=== PATIENT | male | born 1965 | race Caucasian/White ===

== ENCOUNTER 2022-08-25 11:05 | Emergency (ER) | payer BC, OTHER ==
[~2022-08-25] VITALS: Ht 180.3 cm; Wt 109.0 kg
[2022-08-25 11:21] LABS: BASOPHILS # (AUTO) 0.1 X10'3 (0-0.2); BASOPHILS % (AUTO) 1.2 % (0-1); EOSINOPHILS # (AUTO) 0.3 X10'3 (0-0.9); EOSINOPHILS % (AUTO) 4.5 % (0-6); HEMATOCRIT 45.5 % (42.0-52.0); HEMOGLOBIN 15.5 g/dl (14.0-17.9); LYMPHOCYTES # (AUTO) 2.3 X10'3 (1.1-4.8); LYMPHOCYTES % (AUTO) 31.3 % (21-51); MEAN CORPUSCULAR HEMOGLOBIN 31.4 PG (27.0-31.0); MEAN CORPUSCULAR VOLUME 92.4 FL (78-98); MEAN PLATELET VOLUME 7.4 FL (7.4-10.4); MONOCYTES # (AUTO) 0.5 X10'3 (0-0.9); NEUTROPHILS # (AUTO) 4.2 X10'3 (1.8-7.7); PLATELET COUNT 271 X10'3 (140-440); RED BLOOD COUNT 4.93 X10'6 (4.70-6.10); RED CELL DISTRIBUTION WIDTH 12.6 % (11.5-14.5); WHITE BLOOD COUNT 7.4 X10'3 (4.5-11.0)
[2022-08-25] MEDS ORDERED: normal saline 1000ml 1,000 ML IV ONE (11:30)
[2022-08-25] MEDS ORDERED: diltiazem 5mg/ml 5ml inj. IV ONE ×2 (11:30→12:20)
[2022-08-25 11:36] LABS: ALANINE AMINOTRANSFERASE 41 U/L (12-78); ALBUMIN 3.8 G/DL (3.4-5.0); ALBUMIN/GLOBULIN RATIO 1.1 (1.1-1.5); ALKALINE PHOSPHATASE 84 IU/L (46-116); ANION GAP 13 (8-16); ASPARTATE AMINO TRANSFERASE 23 U/L (10-37); BILIRUBIN,TOTAL 0.7 MG/DL (0.1-1.0); BLOOD UREA NITROGEN 17 MG/DL (7-18); BUN/CREATININE RATIO 14.9 (5.4-32.0); CHLORIDE 105 MMOL/L (99-107); CREATININE 1.14 MG/DL (0.60-1.10); GLUCOSE 174 MG/DL (70-104); POTASSIUM 3.8 MMOL/L (3.5-5.1); SODIUM 144 MMOL/L (135-145); TOTAL CARBON DIOXIDE 26.4 MMOL/L (24-32); TOTAL PROTEIN 7.3 G/DL (6.4-8.2); eGFR 67 ML/MIN
[2022-08-25 11:44] LABS: MAGNESIUM 2.1 MG/DL (1.5-2.4)
[2022-08-25] MEDS ORDERED: metoprolol tartrate 1mg/ml inj IV ONE ×3 (12:45→14:00)
[2022-08-25] MEDS ORDERED: propofol 10mg/ml 20ml vial IV ONE (15:35)
[2022-08-25] MEDS ORDERED: metoprolol succinate 25mg (24-HOUR) SR. Tablet PO ONE (16:35)
[2022-08-25 17:40] VITALS: BP 167/97
== END 2022-08-25 17:56 | disposition home or self-care (01) ==
LOC: ER 11:05
DX: I48.20 Chronic atrial fibrillation, unspecified (principal); Z88.0 Allergy status to penicillin
CPT/HCPCS: 36415; 71045; 80053; 83735; 83880; 84484; 85025; 92960; 93005; 96361; 96374; 96375; 96376; 99285; J3490; J7030

== ENCOUNTER 2022-08-30 13:32 | Outpatient (CLI) | payer BC | END 2022-08-30 23:59 | disposition home or self-care (01) | LOC: CARD DIAG 13:32 | PROVIDERS: ATTEND Internal Medicine Cardiovascular Disease | DX: I34.81 Nonrheumatic mitral (valve) annulus calcification (principal); I10 Essential (primary) hypertension; I51.7 Cardiomegaly; I48.0 Paroxysmal atrial fibrillation | CPT/HCPCS: 93306 ==

== ENCOUNTER 2022-09-10 21:23 | Emergency (ER) | payer BC ==
[~2022-09-10] VITALS: Ht 180.3 cm; Wt 110.5 kg
[2022-09-10 21:43] LABS: BASOPHILS # (AUTO) 0.1 X10'3 (0-0.2); BASOPHILS % (AUTO) 1.1 % (0-1); EOSINOPHILS # (AUTO) 0.5 X10'3 (0-0.9); EOSINOPHILS % (AUTO) 5.6 % (0-6); HEMATOCRIT 48.2 % (42.0-52.0); HEMOGLOBIN 16.6 g/dl (14.0-17.9); MEAN CORPUSCULAR HEMOGLOBIN 31.9 PG (27.0-31.0); MEAN CORPUSCULAR HGB CONC 34.4 g/dL (33.0-36.5); MEAN CORPUSCULAR VOLUME 92.7 FL (78-98); MEAN PLATELET VOLUME 7.9 FL (7.4-10.4); MONOCYTES # (AUTO) 0.7 X10'3 (0-0.9); MONOCYTES % (AUTO) 8.8 % (2-12); NEUTROPHILS # (AUTO) 4.1 X10'3 (1.8-7.7); NEUTROPHILS % (AUTO) 48.5 % (42-75); PLATELET COUNT 270 X10'3 (140-440); RED CELL DISTRIBUTION WIDTH 12.5 % (11.5-14.5); WHITE BLOOD COUNT 8.4 X10'3 (4.5-11.0)
[2022-09-10 22:03] LABS: ALANINE AMINOTRANSFERASE 43 U/L (12-78); ALBUMIN 3.9 G/DL (3.4-5.0); ALBUMIN/GLOBULIN RATIO 1.1 (1.1-1.5); ALKALINE PHOSPHATASE 96 IU/L (46-116); ANION GAP 14 (8-16); ASPARTATE AMINO TRANSFERASE 22 U/L (10-37); BILIRUBIN,TOTAL 0.4 MG/DL (0.1-1.0); BLOOD UREA NITROGEN 11 MG/DL (7-18); BUN/CREATININE RATIO 12.4 (5.4-32.0); CALCIUM 8.4 MG/DL (8.5-10.1); CHLORIDE 105 MMOL/L (99-107); CREATININE 0.89 MG/DL (0.60-1.10); POTASSIUM 3.8 MMOL/L (3.5-5.1); SODIUM 142 MMOL/L (135-145); TOTAL CARBON DIOXIDE 22.8 MMOL/L (24-32); TOTAL PROTEIN 7.6 G/DL (6.4-8.2); eGFR 89 ML/MIN
[2022-09-10 22:05] LABS: GLUCOSE 179 MG/DL (70-104)
[2022-09-10] MEDS ORDERED: normal saline 1000ml 1,000 ML IV ONE (22:25)
[2022-09-10] MEDS: metoprolol tartrate 1mg/ml inj IV SCH ×3 (22:49→23:27)
--- NOTE | 2022-09-10 23:05 | NUR ---
Dr Richards aware pt has received 3 doses of metoprolol, HR 95 to 121,
[2022-09-10] MEDS ORDERED: diltiazem 5mg/ml 5ml inj. IV ONE (23:10)
--- NOTE | 2022-09-10 23:35 | NUR ---
pt received cardizem, HR 80 to 90s
[2022-09-11] MEDS ORDERED: propofol 10mg/ml 20ml vial IV ONE (00:40)
[2022-09-11] MEDS ORDERED: metoprolol succinate 25mg (24-HOUR) SR. Tablet PO ONE (01:55)
[2022-09-11 02:27] VITALS: BP 157/84
== END 2022-09-11 03:38 | disposition home or self-care (01) ==
LOC: ER 21:23
DX: I48.91 Unspecified atrial fibrillation (principal); Z88.0 Allergy status to penicillin
CPT/HCPCS: 36415; 71045; 80053; 83880; 84484; 85025; 92960; 93005; 96361; 96374; 96375; 99285; J3490; J7030; A4620

== ENCOUNTER 2022-09-25 06:45 | Emergency (ER) | payer BC ==
[~2022-09-25] VITALS: Ht 180.3 cm; Wt 111.4 kg
[2022-09-25 06:46] VITALS: BP 160/97
--- NOTE | 2022-09-25 07:47 | NUR ---
Patient seen and assessed by provider.
--- NOTE | 2022-09-25 08:35 | NUR ---
called to notify patient regarding negative strep result.
== END 2022-09-25 07:47 | disposition home or self-care (01) ==
LOC: ER 06:46
DX: J02.9 Acute pharyngitis, unspecified (principal); I51.9 Heart disease, unspecified; Z88.0 Allergy status to penicillin
CPT/HCPCS: 87081; 87880; 99283

== ENCOUNTER 2022-10-17 13:40 | Emergency (ER) | payer BC ==
[~2022-10-17] VITALS: Ht 182.2 cm; Wt 112.3 kg
[2022-10-17 14:03] LABS: BASOPHILS # (AUTO) 0.1 X10'3 (0-0.2); EOSINOPHILS # (AUTO) 0.3 X10'3 (0-0.9); EOSINOPHILS % (AUTO) 3.9 % (0-6); HEMATOCRIT 48.6 % (42.0-52.0); HEMOGLOBIN 16.6 g/dl (14.0-17.9); LYMPHOCYTES # (AUTO) 2.2 X10'3 (1.1-4.8); LYMPHOCYTES % (AUTO) 24.3 % (21-51); MEAN CORPUSCULAR HEMOGLOBIN 31.6 PG (27.0-31.0); MEAN CORPUSCULAR HGB CONC 34.1 g/dL (33.0-36.5); MEAN CORPUSCULAR VOLUME 92.6 FL (78-98); MEAN PLATELET VOLUME 7.8 FL (7.4-10.4); MONOCYTES # (AUTO) 0.8 X10'3 (0-0.9); MONOCYTES % (AUTO) 8.8 % (2-12); NEUTROPHILS # (AUTO) 5.5 X10'3 (1.8-7.7); PLATELET COUNT 287 X10'3 (140-440); RED BLOOD COUNT 5.24 X10'6 (4.70-6.10); RED CELL DISTRIBUTION WIDTH 12.1 % (11.5-14.5); WHITE BLOOD COUNT 8.9 X10'3 (4.5-11.0)
[2022-10-17 14:14] LABS: ALANINE AMINOTRANSFERASE 43 U/L (12-78); ALBUMIN 3.9 G/DL (3.4-5.0); ALKALINE PHOSPHATASE 94 IU/L (46-116); ANION GAP 9 (8-16); ASPARTATE AMINO TRANSFERASE 21 U/L (10-37); BILIRUBIN,TOTAL 0.5 MG/DL (0.1-1.0); BLOOD UREA NITROGEN 14 MG/DL (7-18); BUN/CREATININE RATIO 14.1 (5.4-32.0); CALCIUM 8.9 MG/DL (8.5-10.1); CHLORIDE 107 MMOL/L (99-107); CREATININE 0.99 MG/DL (0.60-1.10); GLUCOSE 161 MG/DL (70-104); POTASSIUM 3.9 MMOL/L (3.5-5.1); SODIUM 141 MMOL/L (135-145); TOTAL CARBON DIOXIDE 25.4 MMOL/L (24-32); TOTAL PROTEIN 7.7 G/DL (6.4-8.2); eGFR 78 ML/MIN
[2022-10-17 14:21] LABS: MAGNESIUM 2.4 MG/DL (1.5-2.4)
[2022-10-17 15:30] VITALS: BP 160/81
[2022-10-17] MEDS ORDERED: propofol 10mg/ml 20ml vial IV ONE (16:30)
--- NOTE | 2022-10-17 16:35 | NUR ---
Dr Estrada made aware patient's cardiac rhythm now SR on the monitor, will obtain EKG.
== END 2022-10-17 17:10 | disposition home or self-care (01) ==
LOC: ER 13:41
DX: I48.91 Unspecified atrial fibrillation (principal); R00.0 Tachycardia, unspecified; Z72.89 Other problems related to lifestyle; Z88.0 Allergy status to penicillin
CPT/HCPCS: 36415; 80053; 83735; 83880; 84484; 85025; 93005; 99284

== ENCOUNTER 2022-10-22 11:19 | Outpatient (CLI) | payer BC | END 2022-10-22 23:59 | disposition home or self-care (01) | LOC: LAB 11:19 | PROVIDERS: ATTEND Internal Medicine Interventional Cardiology | DX: I48.91 Unspecified atrial fibrillation (principal); I10 Essential (primary) hypertension | CPT/HCPCS: 36415; 83735; 84443 ==

== ENCOUNTER 2022-12-20 13:54 | Outpatient (CLI) | payer BC | END 2022-12-20 23:59 | disposition home or self-care (01) | LOC: RT 13:54 | PROVIDERS: ATTEND Physician Assistant | DX: R94.2 Abnormal results of pulmonary function studies (principal); R05.3 Chronic cough | CPT/HCPCS: 94010; 94727; 94729 ==

== ENCOUNTER 2023-04-27 06:43 | Outpatient (CLI) | payer BC ==
[2023-04-27 07:12] LABS: BASOPHILS # (AUTO) 0.1 X10'3 (0-0.2); BASOPHILS % (AUTO) 0.8 % (0-1); EOSINOPHILS # (AUTO) 0.4 X10'3 (0-0.9); EOSINOPHILS % (AUTO) 5.1 % (0-6); HEMATOCRIT 44.4 % (42.0-52.0); HEMOGLOBIN 15.1 g/dl (14.0-17.9); LYMPHOCYTES # (AUTO) 2.3 X10'3 (1.1-4.8); LYMPHOCYTES % (AUTO) 31.2 % (21-51); MEAN CORPUSCULAR HEMOGLOBIN 31.5 PG (27.0-31.0); MEAN CORPUSCULAR VOLUME 92.4 FL (78-98); MEAN PLATELET VOLUME 7.6 FL (7.4-10.4); MONOCYTES # (AUTO) 0.7 X10'3 (0-0.9); MONOCYTES % (AUTO) 9.9 % (2-12); NEUTROPHILS # (AUTO) 3.9 X10'3 (1.8-7.7); PLATELET COUNT 251 X10'3 (140-440); RED CELL DISTRIBUTION WIDTH 12.7 % (11.5-14.5); WHITE BLOOD COUNT 7.4 X10'3 (4.5-11.0)
[2023-04-27 08:10] LABS: ALBUMIN 3.7 G/DL (3.4-5.0); ANION GAP 9 (8-16); BLOOD UREA NITROGEN 17 MG/DL (7-18); BUN/CREATININE RATIO 17.7 (10.0-20.0); CALCIUM 8.8 MG/DL (8.5-10.1); CHLORIDE 106 MMOL/L (99-107); CREATININE 0.96 MG/DL (0.60-1.10); GLUCOSE 133 MG/DL (70-104); POTASSIUM 4.2 MMOL/L (3.5-5.1); SODIUM 142 MMOL/L (135-145); TOTAL CARBON DIOXIDE 27.5 MMOL/L (24-32); eGFR 81 ML/MIN
== END 2023-04-27 23:59 | disposition home or self-care (01) ==
LOC: LAB 06:43
PROVIDERS: ATTEND Internal Medicine
DX: I48.91 Unspecified atrial fibrillation (principal)
CPT/HCPCS: 36415; 80048; 85025; 85610

== ENCOUNTER 2023-05-07 06:58 | Emergency (ER) | payer BC ==
[~2023-05-07] VITALS: Ht 180.3 cm; Wt 113.6 kg
[2023-05-07 07:30] VITALS: BP 150/93; PULSE 72; RESP 18; TEMP 98.1; O2SAT 95
[2023-05-07] MEDS ORDERED: bisacodyl 10mg suppository rectal RC ONE (08:20)
[2023-05-07] MEDS ORDERED: lactulose 20gm/30ml cup PO ONE (08:20)
[2023-05-07] MEDS ORDERED: BISA10SU60 RC (08:22)
== END 2023-05-07 08:42 | disposition home or self-care (01) ==
LOC: ER 06:58
DX: K59.00 Constipation, unspecified (principal); R14.0 Abdominal distension (gaseous); I48.91 Unspecified atrial fibrillation; Z72.89 Other problems related to lifestyle; Z79.899 Other long term (current) drug therapy; Z88.0 Allergy status to penicillin
CPT/HCPCS: 74018; 99283

== ENCOUNTER 2023-11-28 10:54 | Outpatient (CLI) | payer BC ==
[~2023-11-28 10:54] MED LIST: BISA10SU60 RC
[2023-11-28 11:34] LABS: ALBUMIN 3.8 G/DL (3.4-5.0); ANION GAP 10 (8-16); BLOOD UREA NITROGEN 18 MG/DL (7-18); BUN/CREATININE RATIO 17.6 (10.0-20.0); CALCIUM 8.8 MG/DL (8.5-10.1); CHLORIDE 104 MMOL/L (99-107); CREATININE 1.02 MG/DL (0.60-1.10); GLUCOSE 135 MG/DL (70-104); POTASSIUM 3.5 MMOL/L (3.5-5.1); SODIUM 141 MMOL/L (135-145); TOTAL CARBON DIOXIDE 27.4 MMOL/L (24-32); eGFR 76 ML/MIN
== END 2023-11-28 23:59 | disposition home or self-care (01) ==
LOC: LAB 10:54
PROVIDERS: ATTEND Family Medicine
DX: I48.91 Unspecified atrial fibrillation (principal); I10 Essential (primary) hypertension
CPT/HCPCS: 36415; 80048

== ENCOUNTER 2024-01-03 09:09 | Emergency (ER) | payer BC ==
[~2024-01-03] VITALS: Ht 180.3 cm; Wt 111.7 kg
[2024-01-03] MEDS: bacitracin 15gm ointment TP ONE (10:04)
[2024-01-03] MEDS: LIDOcaine 1% W/epiNEPHrine 1:100,000 20ml vial SQ ONE (10:04)
[2024-01-03 10:35] VITALS: BP 172/85; PULSE 90; RESP 16; TEMP 98.4; O2SAT 98
== END 2024-01-03 10:36 | disposition home or self-care (01) ==
LOC: ER 09:09
DX: S61.214A Laceration without foreign body of right ring finger without damage to nail, initial encounter (principal); I48.91 Unspecified atrial fibrillation; Z72.89 Other problems related to lifestyle; Z88.0 Allergy status to penicillin; Z88.8 Allergy status to other drugs, medicaments and biological substances; X58.XXXA Exposure to other specified factors, initial encounter; Y93.H2 Activity, gardening and landscaping; Y92.89 Other specified places as the place of occurrence of the external cause; Y99.8 Other external cause status
CPT/HCPCS: 12001; 99282

== ENCOUNTER → 2024-02-10 | Outpatient (CLI) | payer BC ==
[2024-02-10 09:42] LABS: ALANINE AMINOTRANSFERASE 32 U/L (12-78); ALBUMIN 3.6 G/DL (3.4-5.0); ALKALINE PHOSPHATASE 69 IU/L (46-116); ANION GAP 6 (8-16); ASPARTATE AMINO TRANSFERASE 15 U/L (10-37); BILIRUBIN,TOTAL 0.5 MG/DL (0.1-1.0); BLOOD UREA NITROGEN 18 MG/DL (7-18); BUN/CREATININE RATIO 17.8 (10.0-20.0); CALCIUM 8.5 MG/DL (8.5-10.1); CHLORIDE 104 MMOL/L (99-107); CHOL/HDL RATIO 3.2 (0.00-4.99); CHOLESTEROL 168 MG/DL (0-200); CREATININE 1.01 MG/DL (0.60-1.10); GLUCOSE 122 MG/DL (70-104); HDL CHOLESTEROL 53 MG/DL (35-60); LDL CHOLESTEROL 89 MG/DL (50-100); POTASSIUM 3.8 MMOL/L (3.5-5.1); SODIUM 141 MMOL/L (135-145); TOTAL CARBON DIOXIDE 30.6 MMOL/L (24-32); TOTAL PROTEIN 7.2 G/DL (6.4-8.2); TRIGLYCERIDES 132 MG/DL (20-135); eGFR 76 ML/MIN
[2024-02-10 09:46] LABS: BASOPHILS # (AUTO) 0.1 X10'3 (0-0.2); BASOPHILS % (AUTO) 0.7 % (0-1); EOSINOPHILS # (AUTO) 0.4 X10'3 (0-0.9); EOSINOPHILS % (AUTO) 4.2 % (0-6); HEMATOCRIT 43.7 % (42.0-52.0); HEMOGLOBIN 14.9 g/dl (14.0-17.9); LYMPHOCYTES # (AUTO) 2.5 X10'3 (1.1-4.8); MEAN CORPUSCULAR HEMOGLOBIN 31.5 PG (27.0-31.0); MEAN CORPUSCULAR HGB CONC 34.1 g/dL (33.0-36.5); MEAN CORPUSCULAR VOLUME 92.3 FL (78-98); MONOCYTES # (AUTO) 0.7 X10'3 (0-0.9); MONOCYTES % (AUTO) 8.4 % (2-12); NEUTROPHILS # (AUTO) 4.7 X10'3 (1.8-7.7); NEUTROPHILS % (AUTO) 56.7 % (42-75); PLATELET COUNT 282 X10'3 (140-440); RED BLOOD COUNT 4.73 X10'6 (4.70-6.10); RED CELL DISTRIBUTION WIDTH 12.4 % (11.5-14.5); WHITE BLOOD COUNT 8.3 X10'3 (4.5-11.0)
== END | disposition home or self-care (01) ==
LOC: LAB 05:55
DX: I48.91 Unspecified atrial fibrillation (principal); I10 Essential (primary) hypertension; K21.9 Gastro-esophageal reflux disease without esophagitis; B35.6 Tinea cruris; Z76.89 Persons encountering health services in other specified circumstances; Z91.09 Other allergy status, other than to drugs and biological substances
CPT/HCPCS: 36415; 80053; 80061; 85025

== ENCOUNTER 2024-11-07 05:48 | Outpatient (CLI) | payer BC ==
[2024-11-07 08:11] LABS: BASOPHILS # (AUTO) 0.1 X10'3 (0-0.2); BASOPHILS % (AUTO) 1.2 % (0-1); EOSINOPHILS # (AUTO) 0.7 X10'3 (0-0.9); EOSINOPHILS % (AUTO) 9.1 % (0-6); HEMATOCRIT 42.1 % (42.0-52.0); HEMOGLOBIN 14.5 g/dl (14.0-17.9); LYMPHOCYTES # (AUTO) 2.3 X10'3 (1.1-4.8); LYMPHOCYTES % (AUTO) 29.2 % (21-51); MEAN CORPUSCULAR HEMOGLOBIN 31.6 PG (27.0-31.0); MEAN CORPUSCULAR HGB CONC 34.6 g/dL (33.0-36.5); MEAN CORPUSCULAR VOLUME 91.3 FL (78-98); MEAN PLATELET VOLUME 7.6 FL (7.4-10.4); MONOCYTES # (AUTO) 0.7 X10'3 (0-0.9); MONOCYTES % (AUTO) 8.8 % (2-12); NEUTROPHILS # (AUTO) 4.1 X10'3 (1.8-7.7); NEUTROPHILS % (AUTO) 51.7 % (42-75); PLATELET COUNT 295 X10'3 (140-440); RED BLOOD COUNT 4.61 X10'6 (4.70-6.10); RED CELL DISTRIBUTION WIDTH 12.5 % (11.5-14.5)
[2024-11-07 08:46] LABS: ALANINE AMINOTRANSFERASE 30 U/L (12-78); ALBUMIN 3.9 G/DL (3.4-5.0); ALBUMIN/GLOBULIN RATIO 1.1 (1.1-1.5); ALKALINE PHOSPHATASE 69 IU/L (46-116); ANION GAP 9 (8-16); ASPARTATE AMINO TRANSFERASE 19 U/L (10-37); BILIRUBIN,TOTAL 0.6 MG/DL (0.1-1.0); BLOOD UREA NITROGEN 22 MG/DL (7-18); BUN/CREATININE RATIO 21.2 (10.0-20.0); CALCIUM 9.1 MG/DL (8.5-10.1); CHLORIDE 103 MMOL/L (99-107); CHOL/HDL RATIO 3.9 (0.00-4.99); CHOLESTEROL 208 MG/DL (0-200); CREATININE 1.04 MG/DL (0.60-1.10); FREE T4 (FREE THYROXINE) 0.75 NG/DL (0.73-1.40); GLUCOSE 124 MG/DL (70-104); HDL CHOLESTEROL 54 MG/DL (35-60); LDL CHOLESTEROL 116 MG/DL (50-100); POTASSIUM 3.6 MMOL/L (3.5-5.1); SODIUM 139 MMOL/L (135-145); THYROID STIMULATING HORMONE 1.73 ulU/ml (0.34-4.50); TOTAL CARBON DIOXIDE 27.2 MMOL/L (24-32); TOTAL PROTEIN 7.5 G/DL (6.4-8.2); TRIGLYCERIDES 160 MG/DL (20-135); eGFR 74 ML/MIN
[2024-11-07 08:55] LABS: HEMOGLOBIN A1C 6.2 % (4.5-6.2)
[2024-11-08 11:15] LABS: FOLATE SERUM(FOLIC) 9.1 ng/mL (>3.0); PSA, ULTRASENSITIVE W/O SERIAL 0.911 ng/mL (0.000-4.000); TESTOSTERONE, SERUM 311 ng/dL (264-916); VITAMIN D, 25-HYDROXY 17.4 ng/mL (30.0-100.0)
== END 2024-11-07 23:59 | disposition home or self-care (01) ==
LOC: LAB 05:48
PROVIDERS: ATTEND Nurse Practitioner
DX: J34.3 Hypertrophy of nasal turbinates (principal); I10 Essential (primary) hypertension; I48.91 Unspecified atrial fibrillation; Z13.220 Encounter for screening for lipoid disorders; Z13.29 Encounter for screening for other suspected endocrine disorder; Z91.09 Other allergy status, other than to drugs and biological substances
CPT/HCPCS: 36415; 80053; 80061; 82180; 82306; 82330; 82607; 82746; 82785; 83036; 83970; 84100; 84153; 84402; 84403; 84439; 84443; 85025

== ENCOUNTER 2024-12-04 09:24 | Outpatient (CLI) | payer BC | END 2024-12-04 23:59 | disposition home or self-care (01) | LOC: RAD 09:24 | PROVIDERS: ATTEND Otolaryngology | DX: J32.4 Chronic pansinusitis (principal); J32.9 Chronic sinusitis, unspecified; J32.2 Chronic ethmoidal sinusitis; J32.1 Chronic frontal sinusitis | CPT/HCPCS: 70486 ==